=== PATIENT | female | born 1960 | race Caucasian/White ===

== ENCOUNTER → 2017-02-20 | Outpatient (CLI) | payer BC ==
--- NOTE | 2017-02-20 08:35 | REPMRS ---
Patient History The patient states she had a clinical breast exam in 02/09 Patient is postmenopausal. No known family history of cancer. Took hormonal contraceptives for 5 years. Taking unspecified hormones for 4 years. Digital Woman Screen Mammo: February 20, 2017 - Exam #: [id number] Bilateral CC and MLO view(s) were taken. Technologist: Zhanna Dunham, Technologist Prior study comparison: February 14, 2016, digital woman screen mammo performed at [facility]. February 09, 2015, digital woman screen mammo performed at [facility]. February 03, 2014, bilateral bilat screen digital mammo, performed at [facility] ([facility]). FINDINGS: There are scattered fibroglandular densities. There has been no change in the appearance of the mammogram from the prior studies. There is a mild amount of residual fibroglandular tissue which is fairly symmetric. There is no interval development of dominant mass, architectural distortion, or clustered microcalcification suggestive of malignancy.Scattered lymph nodes are seen in the axillae. Large coarse benign appearing calcification is present in left breast, unchanged.. No significant changes when compared with prior studies. ASSESSMENT: BI-RADS/ACR category 2 mammogram. Benign finding(s). Recommendation Routine screening mammogram in 1 year (for women over age 40). This mammogram was interpreted with the aid of an FDA-approved computer-aided dectection system. A. Negative x-ray reports should not delay biopsy if a dominant or clinically suspicious mass is present. B. Four to eight percent of cancers are not identified by mammography. C. Adenosis and dense breast may obscure an underlying neoplasm. Electronically Signed By: Rasheed Page MD 02/20/17 [id number]
== END ==
LOC: M WHC 07:28
PROVIDERS: ATTEND Nurse Practitioner Women's Health
DX: Z12.31 Encounter for screening mammogram for malignant neoplasm of breast (principal)

== ENCOUNTER → 2017-08-28 | Outpatient (CLI) | payer BC ==
--- NOTE | 2017-08-28 10:41 | REP ---
Thyroid sonography: History: Thyroid nodule. Comparison study: August 28, 2016. This showed bilateral hypoechoic subcentimeter nodules, one on each side. Findings: Today's thyroid sonography demonstrates that the thyroid isthmus measures 0.4 cm in thickness. Right lobe dimensions by ultrasound are 4.4 x 1.8 x 1.0 cm. Left lobe measures 4.1 x 1.5 x 1.2 cm. These measurements are similar to the prior study. Multiple tiny cysts are again seen bilaterally. There is a 0.3 cm hypoechoic area on the left which may be partially cystic unchanged. On the right laterally there is a 0.6 cm complex hypoechoic area which is also felt to be unchanged. Impression: Multiple tiny cysts and one complex subcentimeter nodule in each lobe. No evidence of significant progression.
== END ==
LOC: M WHC 08:48
PROVIDERS: ATTEND Family Medicine
DX: E04.1 Nontoxic single thyroid nodule (principal)

== ENCOUNTER → 2018-02-25 | Outpatient (CLI) | payer BC | LOC: M WHC 09:53 | DX: Z12.31 Encounter for screening mammogram for malignant neoplasm of breast (principal) | CPT/HCPCS: 77067 ==

== ENCOUNTER → 2018-09-23 | Outpatient (CLI) | payer BC | LOC: M WHC 10:22 | DX: E04.1 Nontoxic single thyroid nodule (principal) | CPT/HCPCS: 76536 ==

== ENCOUNTER → 2019-03-03 | Outpatient (CLI) | payer BC ==
--- NOTE | 2019-03-03 10:54 | REPMRS ---
Patient History The patient states she had a clinical breast exam in 01/2019. Patient is postmenopausal. No known family history of cancer. Took hormonal contraceptives for 5 years. Taking unspecified hormones for 5 years. Digital Woman Screen Mammo: March 03, 2019 - Exam #: [id number] Bilateral CC and MLO view(s) were taken. Technologist: Zhanna Dunham, Technologist Prior study comparison: February 25, 2018, digital woman screen mammo performed at [facility]. February 20, 2017, digital woman screen mammo performed at [facility]. February 14, 2016, digital woman screen mammo performed at [facility]. FINDINGS: The breast tissue is heterogeneously dense. This may lower the sensitivity of mammography. There is a moderate amount of heterogeneously dense fibroglandular tissue which is fairly symmetric. There is no interval development of dominant mass, architectural distortion, or clustered microcalcification typical of malignancy. There has been no change in the appearance of the mammogram from the prior studies. 3-D tomosynthesis shows no additional findings. Assessment: BI-RADS/ACR category 1 mammogram. Negative Mammogram. Recommendation Routine screening mammogram of both breasts in 1 year (for women over age 40). This patient's Lifetime Breast Cancer RIsk is estimated at 9.3 %. This mammogram was interpreted with the aid of an FDA-approved computer-aided dectection system. Electronically Signed By: Rush Nunez MD 03/03/19 [id number]
== END ==
LOC: M WHC 08:26
PROVIDERS: ATTEND Nurse Practitioner Women's Health
DX: Z12.31 Encounter for screening mammogram for malignant neoplasm of breast (principal); Z78.0 Asymptomatic menopausal state; Z92.0 Personal history of contraception; Z79.890 Hormone replacement therapy

== ENCOUNTER → 2019-09-22 | Outpatient (CLI) | payer BC ==
--- NOTE | 2019-09-22 12:51 | REP ---
Clinical: Thyroid nodule. Comparison: 09/23/2018. Technique: Real time sheikh scale ultrasound examination using linear high frequency transducer. Findings: Right thyroid lobe measures 4.3 x 1.9 x 1.3 cm. Left thyroid lobe measures 4.2 x 1.5 x 1.1 cm. Isthmus measures 3.3 mm in width. Few scattered bilateral small nonspecific hypoechoic nodules and cysts are identified measuring up to 6 x 5 x 3 mm in the right mid pole region. Findings are essentially unchanged as compared to prior examination. Impression: Scattered nonspecific relatively stable small hypoechoic nodules and cysts. No significant change from prior examination.
== END ==
LOC: M WHC 10:58
PROVIDERS: ATTEND Family Medicine
DX: E04.2 Nontoxic multinodular goiter (principal)

== ENCOUNTER → 2020-04-08 | Outpatient (CLI) | payer BC ==
--- NOTE | 2020-04-08 15:09 | REPMRS ---
Patient History The patient states she had a clinical breast exam in March 2020.No known family history of cancer. Took hormonal contraceptives for 5 years. Taking unspecified hormones for 5 years. Digital Woman Screen Mammo: April 08, 2020 - Exam #: [id number] Bilateral CC and MLO view(s) were taken. Technologist: Neda Gonzalez, Technologist Prior study comparison: March 03, 2019, bilateral digital woman screen mammo performed at [facility]. February 25, 2018, digital woman screen mammo performed at [facility]. February 20, 2017, digital woman screen mammo performed at [facility]. FINDINGS: There are scattered fibroglandular densities. The Volpara volumetric breast density category is:B. There has been no change in the appearance of the mammogram from the prior studies. There is a mild amount of scattered fibroglandular density which is fairly symmetric. There is no interval development of dominant mass, architectural distortion, or grouped microcalcification suggestive of malignancy. 3-D tomosynthesis shows no additional findings. Assessment: BI-RADS/ACR category 1 mammogram. Negative Mammogram. Recommendation Routine screening mammogram of both breasts in 1 year (for women over age 40). This patient's Lifetime Breast Cancer Risk is estimated at 8.8 %. This mammogram was interpreted with the aid of an FDA-approved computer-aided dectection system. Electronically Signed By: Rush Nunez MD 04/08/20 [id number]
== END ==
LOC: M WHC 06:52
PROVIDERS: ATTEND Obstetrics & Gynecology
DX: Z12.31 Encounter for screening mammogram for malignant neoplasm of breast (principal)

== ENCOUNTER → 2020-05-05 | Outpatient (CLI) | payer BC | LOC: M LABSMTC 10:01 | PROVIDERS: ATTEND Pediatrics | DX: Z03.818 Encounter for observation for suspected exposure to other biological agents ruled out (principal); Z11.59 Encounter for screening for other viral diseases ==

== ENCOUNTER → 2020-07-28 | Outpatient (CLI) | payer BC ==
--- NOTE | 2020-08-24 09:07 | REP ---
RIGHT FOOT SERIES CLINICAL: Pain. TECHNIQUE: AP, lateral, bilateral oblique views of the right foot. FINDINGS: Evidence for prior surgical fixation at the first metatarsophalangeal joint with heterotopic ossification and postsurgical changes. Remainder of the osseous structures and joint spaces appear intact and normal. Lateral view suggests moderate diffuse soft tissue swelling. No subcutaneous emphysema or foreign body. No acute fracture or dislocation. IMPRESSION: Moderate swelling suggested. Postsurgical changes involving the first toe. No acute fracture or dislocation. No subcutaneous emphysema. MTDD
== END ==
LOC: M RAD 18:25
PROVIDERS: ATTEND Physician Assistant
DX: M79.671 Pain in right foot (principal)

== ENCOUNTER → 2020-08-09 | Outpatient (CLI) | payer SELFPAY | LOC: M LABSMTC 09:38 | PROVIDERS: ATTEND Pediatrics | DX: Z20.828 Contact with and (suspected) exposure to other viral communicable diseases (principal) ==

== ENCOUNTER → 2021-01-03 | Outpatient (REF) | payer BC | LOC: M WUC 15:46 | PROVIDERS: ATTEND Physician Assistant | DX: N39.0 Urinary tract infection, site not specified (principal) ==

== ENCOUNTER → 2021-10-03 | Outpatient (CLI) | payer BC ==
--- NOTE | 2021-10-03 14:45 | REP ---
INDICATION: ENLARGED THYROID GLAND, THYROID NODULE. COMPARISON: 09/22/2019 TECHNIQUE: Real-time sonographic evaluation of the thyroid with Doppler FINDINGS: Right lobe of the thyroid gland measures 4.2 x 1.5 x 1.1 cm and the left lobe measures 3.8 x 1.3 x 1.2 cm. The isthmus measures 3 mm. There are numerous tiny mm sized solid nodules and even tinier cysts. Overall, there is no change from the prior exam. No significant dominant nodule has developed. IMPRESSION: No change from 09/22/2019. <Electronically signed by Jaime King > 10/03/21 [id number]
== END ==
LOC: M RAD 11:45
PROVIDERS: ATTEND Family Medicine
DX: E04.2 Nontoxic multinodular goiter (principal)

== ENCOUNTER → 2021-11-21 | Outpatient (CLI) | payer BC ==
[2021-11-21 12:34] LABS: FREE T4 0.92 NG/DL (0.76-1.46); THYROID STIMULATING HORMONE 0.591 uIU/ML (0.358-3.740)
== END ==
LOC: M LAB 11:05
PROVIDERS: ATTEND Family Medicine
DX: E03.9 Hypothyroidism, unspecified (principal)

== ENCOUNTER → 2022-09-11 | Outpatient (CLI) | payer BC ==
[2022-09-11 08:27] LABS: BASO % 0.6 % (0.0-1.0); EOS # 0.2 10^3/uL (0.0-0.5); EOS % 3.2 % (0.0-3.0); HEMATOCRIT 40.7 % (36.0-47.0); HEMOGLOBIN 13.1 g/dl (12.0-15.5); LYMPH # 2.4 10^3/uL (1.5-5.0); LYMPH % 34.9 % (24.0-44.0); MEAN CORPUSCULAR HEMOGLOBIN 29.3 pg (27.0-33.0); MEAN CORPUSCULAR HGB CONC 32.2 g/dl (32.0-36.5); MEAN CORPUSCULAR VOLUME 91.1 fl (80.0-96.0); MONO # 0.4 10^3/uL (0.0-0.8); MONO % 5.6 % (2.0-8.0); NEUTROPHILS # 3.9 10^3/uL (1.5-8.5); NEUTROPHILS % 55.4 % (36.0-66.0); PLATELET COUNT, AUTOMATED 490 10^3/uL (150-450); RED BLOOD COUNT 4.47 10^6/uL (4.00-5.40)
[2022-09-11 09:06] LABS: ALBUMIN 3.7 GM/DL (3.2-5.2); ALT/SGPT 34 U/L (12-78); BILIRUBIN,TOTAL 0.4 MG/DL (0.2-1.0); BLOOD UREA NITROGEN 13 MG/DL (7-18); CALCIUM LEVEL 9.1 MG/DL (8.8-10.2); CARBON DIOXIDE LEVEL 28 MEQ/L (21-32); CHLORIDE LEVEL 106 MEQ/L (98-107); CHOLESTEROL LEVEL 204 MG/DL (<200); CHOLESTEROL RISK RATIO 3.238 (<5); CREATININE FOR GFR 0.71 MG/DL (0.55-1.30); FREE T4 0.87 NG/DL (0.76-1.46); GLOMERULAR FILTRATION RATE > 60.0 (>45); GLUCOSE, FASTING 102 MG/DL (70-100); HDL CHOLESTEROL 63 MG/DL (>40); LDL CHOLESTEROL 112 MG/DL (<100); NON-HDL-C 141 MG/DL; POTASSIUM SERUM 4.5 MEQ/L (3.5-5.1); SODIUM LEVEL 138 MEQ/L (136-145); TOTAL PROTEIN 6.8 GM/DL (6.4-8.2); TRIGLYCERIDES LEVEL 145 MG/DL (<150)
== END ==
LOC: M LAB 07:38
PROVIDERS: ATTEND Family Medicine
DX: E78.5 Hyperlipidemia, unspecified (principal); E04.1 Nontoxic single thyroid nodule; D47.3 Essential (hemorrhagic) thrombocythemia

== ENCOUNTER → 2023-04-18 | Outpatient (CLI) | payer BC ==
[2023-04-18 07:05] LABS: BASO % 0.5 % (0.0-1.0); EOS # 0.3 10^3/uL (0.0-0.5); EOS % 3.5 % (0.0-3.0); HEMOGLOBIN 12.9 g/dl (12.0-15.5); LYMPH # 2.2 10^3/uL (1.5-5.0); LYMPH % 27.9 % (24.0-44.0); MEAN CORPUSCULAR HEMOGLOBIN 29.6 pg (27.0-33.0); MEAN CORPUSCULAR HGB CONC 33.1 g/dl (32.0-36.5); MEAN CORPUSCULAR VOLUME 89.4 fl (80.0-96.0); MONO # 0.4 10^3/uL (0.0-0.8); MONO % 5.3 % (2.0-8.0); NEUTROPHILS # 4.9 10^3/uL (1.5-8.5); NEUTROPHILS % 62.5 % (36.0-66.0); PLATELET COUNT, AUTOMATED 466 10^3/uL (150-450); RED BLOOD COUNT 4.36 10^6/uL (4.00-5.40); WHITE BLOOD COUNT 7.8 10^3/uL (4.0-10.0)
[2023-04-18 07:18] LABS: HEMOGLOBIN A1c 5.6 % (4.0-6.0)
[2023-04-18 07:27] LABS: ALBUMIN 3.6 G/DL (3.2-5.2); ALKALINE PHOSPHATASE 84 U/L (46-116); ALT/SGPT 19 U/L (7.0-40); AST/SGOT 16 U/L (<34); BILIRUBIN,TOTAL 0.4 MG/DL (0.3-1.2); BLOOD UREA NITROGEN 19 MG/DL (9-23); CALCIUM LEVEL 8.6 MG/DL (8.3-10.6); CARBON DIOXIDE LEVEL 27 MMOL/L (20-31); CHLORIDE LEVEL 106 MMOL/L (98-107); CREATININE FOR GFR 0.73 MG/DL (0.55-1.30); GLOMERULAR FILTRATION RATE > 60.0 (>45); GLUCOSE, FASTING 151 MG/DL (74-106); SODIUM LEVEL 141 MMOL/L (136-145); TOTAL PROTEIN 6.3 G/DL (5.7-8.2)
[2023-04-18 07:29] LABS: FREE T4 1.08 NG/DL (0.89-1.76); THYROID STIMULATING HORMONE 1.308 uIU/ML (0.55-4.78)
== END ==
LOC: M LAB 06:37
PROVIDERS: ATTEND Physician Assistant
DX: E03.9 Hypothyroidism, unspecified (principal); R73.03 Prediabetes

== ENCOUNTER → 2023-06-11 | Outpatient (REF) | payer BC | LOC: M SFHCWAGY 13:13 | PROVIDERS: ATTEND Nurse Practitioner Family | DX: Z12.4 Encounter for screening for malignant neoplasm of cervix (principal) | CPT/HCPCS: 87624; G0123 ==

== ENCOUNTER 2024-06-09 08:28 | Day surgery (SDC) | payer BC ==
[~2024-06-09] VITALS: Ht 157.5 cm; Wt 72.9 kg
[~2024-06-09 08:28] MED LIST: BAYE81TA7 PO; CALTTAB6 PO; FLON27.5; SIMV20TA22 PO; SYNT50TA PO; VAGI10TA PO; [UNRECOGNIZED DRUG - CODE] PO; vitafusion PO
[2024-06-09] MEDS: NS 1,000 ML IV ONE (09:00)
[2024-06-09] MEDS ORDERED: propofoL 500 MG/50 ML VIAL As Ordered ONE (09:33)
[2024-06-09] MEDS ORDERED: LIDOCAINE 2% 100MG/5ML SDV (FOR ANES.) As Ordered ONE (09:33)
[2024-06-09 10:15] VITALS: BP 131/67; TEMP 96.2; O2SAT 96
== END 2024-06-09 10:24 | disposition home or self-care (01) ==
LOC: M OPP 08:28
PROVIDERS: ATTEND Internal Medicine Gastroenterology
DX: Z12.11 Encounter for screening for malignant neoplasm of colon (principal); K64.0 First degree hemorrhoids; K63.3 Ulcer of intestine; E03.9 Hypothyroidism, unspecified; Z79.02 Long term (current) use of antithrombotics/antiplatelets; Z79.82 Long term (current) use of aspirin; Z79.890 Hormone replacement therapy

== ENCOUNTER → 2024-06-16 | Outpatient (REF) | payer BC | LOC: M SFHCWAGY 13:22 | PROVIDERS: ATTEND Nurse Practitioner Family | DX: Z12.4 Encounter for screening for malignant neoplasm of cervix (principal); R87.610 Atypical squamous cells of undetermined significance on cytologic smear of cervix (ASC-US) | CPT/HCPCS: 87624; G0123 ==

== ENCOUNTER → 2025-01-05 | Outpatient (CLI) | payer BC ==
[2025-01-05 08:51] LABS: BASO % 0.3 % (0.0-1.0); EOS # 0.2 10^3/uL (0.0-0.5); EOS % 2.4 % (0.0-3.0); HEMATOCRIT 41.3 % (36.0-47.0); HEMOGLOBIN 13.6 g/dl (12.0-15.5); LYMPH # 1.9 10^3/uL (1.5-5.0); LYMPH % 30.4 % (24.0-44.0); MEAN CORPUSCULAR HGB CONC 32.9 g/dl (32.0-36.5); MEAN CORPUSCULAR VOLUME 91.2 fl (80.0-96.0); MONO # 0.5 10^3/uL (0.0-0.8); MONO % 7.3 % (2.0-8.0); NEUTROPHILS # 3.7 10^3/uL (1.5-8.5); NEUTROPHILS % 59.3 % (36.0-66.0); PLATELET COUNT, AUTOMATED 491 10^3/uL (150-450); RED BLOOD COUNT 4.53 10^6/uL (4.00-5.40); WHITE BLOOD COUNT 6.2 10^3/uL (4.0-10.0)
[2025-01-05 09:58] LABS: ALBUMIN 3.7 G/DL (3.2-5.2); ALKALINE PHOSPHATASE 79 U/L (35-104); ALT/SGPT 19 U/L (7.0-40); AST/SGOT 12 U/L (<34); BILIRUBIN,TOTAL 0.5 MG/DL (0.3-1.2); BLOOD UREA NITROGEN 13 MG/DL (9-23); CALCIUM LEVEL 9.4 MG/DL (8.3-10.6); CARBON DIOXIDE LEVEL 30 MMOL/L (20-31); CHLORIDE LEVEL 105 MMOL/L (98-107); CHOLESTEROL LEVEL 218 MG/DL (<200); CHOLESTEROL RISK RATIO 3.04 (<5); CREATININE FOR GFR 0.71 MG/DL (0.55-1.30); GLOMERULAR FILTRATION RATE > 60.0 (>45); GLUCOSE, FASTING 96 MG/DL (74-106); HDL CHOLESTEROL 71.5 MG/DL (>40); LDL CHOLESTEROL 126.7 MG/DL (<100); MAGNESIUM LEVEL 2.1 MG/DL (1.8-2.4); NON-HDL-C 146.5 MG/DL; POTASSIUM SERUM 4.5 MMOL/L (3.5-5.1); SODIUM LEVEL 142 MMOL/L (136-145); TOTAL PROTEIN 6.8 G/DL (5.7-8.2); TRIGLYCERIDES LEVEL 99 MG/DL (<150)
[2025-01-05 09:59] LABS: FOLATE > 24.00 NG/ML (>5.4); VITAMIN B12 LEVEL 651 PG/ML (211-911)
[2025-01-05 10:00] LABS: THYROID STIMULATING HORMONE 1.625 uIU/ML (0.55-4.78)
[2025-01-05 10:16] LABS: HEMOGLOBIN A1c 5.6 % (4.0-6.0)
== END ==
LOC: M LAB 08:04
PROVIDERS: ATTEND Family Medicine
DX: R43.0 Anosmia (principal); E78.5 Hyperlipidemia, unspecified; E04.1 Nontoxic single thyroid nodule; E03.9 Hypothyroidism, unspecified; R73.03 Prediabetes; D47.3 Essential (hemorrhagic) thrombocythemia; R43.2 Parageusia

== ENCOUNTER → 2025-07-28 | Outpatient (CLI) | payer BC ==
[2025-07-28 07:28] LABS: BASO # 0.0 10^3/uL (0.0-0.2); BASO % 0.4 % (0.0-1.0); EOS # 0.1 10^3/uL (0.0-0.5); EOS % 1.9 % (0.0-3.0); LYMPH # 1.8 10^3/uL (1.5-5.0); LYMPH % 27.1 % (24.0-44.0); MONO # 0.4 10^3/uL (0.0-0.8); MONO % 5.6 % (2.0-8.0); NEUTROPHILS # 4.4 10^3/uL (1.5-8.5); NEUTROPHILS % 64.7 % (36.0-66.0); PLATELET COUNT, AUTOMATED 455 10^3/uL (150-450)
[2025-07-28 07:43] LABS: INR 0.98
[2025-07-28 07:58] LABS: ALT/SGPT 16 U/L (7.0-40); AST/SGOT 17 U/L (<34); CALCIUM LEVEL 9.3 MG/DL (8.3-10.6); CARBON DIOXIDE LEVEL 27 MMOL/L (20-31); CHLORIDE LEVEL 106 MMOL/L (98-107); CREATININE FOR GFR 0.68 MG/DL (0.55-1.30); GLOMERULAR FILTRATION RATE > 90.0 (>45); IRON (FE) 112 UG/DL (50-170); PERCENT SATURATION 38.5 % (13.2-45.0); POTASSIUM SERUM 3.9 MMOL/L (3.5-5.1); SODIUM LEVEL 144 MMOL/L (136-145)
== END ==
LOC: M LAB 06:51
PROVIDERS: ATTEND Orthopaedic Surgery
DX: Z01.818 Encounter for other preprocedural examination (principal); M17.11 Unilateral primary osteoarthritis, right knee; M25.562 Pain in left knee